=== PATIENT | female | born 1995 | race Caucasian/White ===

== ENCOUNTER 2018-12-05 15:50 | Observation (INO) ==
[2018-12-05] MEDS ORDERED: Acetaminophen 325 MG TABLET PO PRN (19:44)
[2018-12-05] MEDS ORDERED: 0.9 % Sodium Chloride 1,000 ML IVC SCH (19:45)
[2018-12-05] MEDS ORDERED: traMADol 50 MG TABLET PO PRN (19:46)
[2018-12-05] MEDS ORDERED: Ondansetron ODT 4 MG TAB.RAPDIS SL PRN (19:49)
--- NOTE | 2018-12-05 20:12 | Acute Care Surgery H&P ---
Date of Encounter: 12/05/18 Time of Encounter: 20:06 Assessment and Plan (1) Symptomatic cholelithiasis Current Visit: Yes Status: Acute 23F 15 weeks with what sounds like expected afternoon sickness related to . No pain on exam; CLD, ADAT IVF labs, UA to eval for possible UTI activity as tolerated will plan for d/c in AM The assessment and plan as outlined above was discussed with the patient and/or family members who expressed understanding and agreement. All questions were answered. History of Present Illness Chief complaint: abdominal pain HPI: Ms. Siddiqi is a 23 year old female who is 15 weeks who presented to an [facility] with nausea, vomiting, and PO intolerance. She attributed her symptoms to morning sickness. She had a prior episode before where she was found to have a UTI. She was evaluated at an [facility] where, during their work up, she was found to have cholelithiasis. This was an incidental finding as she never complained of any abdominal pain and never knew she had gallstones until today. I was called for management recommendations in light of the finding and the patient presentation. The concern by the [facility] was for acute cholecystitsi as they reported tenderness on exam during the abdominal US. The decision was made for the patient to be evaluated here at [place]. The patient feels better, still reports no pain, and is about to have broth. When asking about her pain, she stated that the US rod tape operator pushed on her ribs and it hurt. She reiterated that she did not have abdominal pain. Past Med Surg Social Fam HX - Past Medical History Additional medical history: Fatty liver, Asthma, ovarian cyst, X 2/ 1st one miscarriage at 23 weeks Psychiatric history: anxiety, ADHD, depression - Social History Smoking Status: Current every day smoker Packs per day: 0.25 Smokeless Tobacco Status: No Alcohol use: none Drug use: none Medications and Allergies Allergy/AdvReac Type Severity Reaction Status Date / Time iodine Allergy See Verified 12/05/18 19:03 Comments acetaminophen [From Vicodin] AdvReac Swelling Verified 12/05/18 19:03 of the Eye Amoxicillin AdvReac Swelling Verified 12/05/18 19:03 of the Eye hydrocodone [From Vicodin] AdvReac Swelling Verified 12/05/18 19:03 of the Eye Penicillins AdvReac Hives Verified 12/05/18 19:03 Review of Systems All systems PM: 12 point ROS negative besides HPI findings General Surgery Exam Initial Vital Signs Temp Pulse Resp BP Pulse Ox 98.5 F 77 16 90/63 100 12/05/18 18:27 12/05/18 18:27 12/05/18 18:27 12/05/18 18:27 12/05/18 18:27 - General physical appearance no distress - Eyes other (no scleral icterus), PERRL, normal ocular movement - ENT normocephalic - Neck trachea midline, no lymphadectomy - Respiratory normal expansion, normal respiratory effort - Cardiovascular Cardiovascular exam: Present: RRR - Abdomen Abdomen general surgery: Present: soft, non tender - Integumentary Integumentary general surgery: Present: warm and dry - Neurologic Present: CN 2-12 grossly intact - Musculoskeletal Present: normal posture - Psychiatric Psychiatric general surgery: Present: A&Ox3 Results - Labs All other labs normal.
[2018-12-05 21:53] LABS: Basophils % 0.2 %; Eosinophils # 0.1 K/mcL (0.0-0.6); Eosinophils % 0.7 %; Hematocrit 32.6 % (35.3-44.9); Hemoglobin 11.1 g/dL (11.5-15.4); Immature Granulocytes % 0.6 % (0-4); Lymphocytes # 1.8 K/mcL (0.6-4.6); Lymphocytes % 20.7 %; Mean Corpuscular Hemoglobin 28.5 pg (28.0-33.3); Mean Corpuscular Volume 83.6 fL (83.0-100.0); Mean Platelet Volume 9.7 fL (9.4-12.4); Monocytes # 0.5 K/mcL (0.0-1.3); Monocytes % 5.6 %; Neutrophils # 6.4 K/mcL (1.6-8.9); Platelet Count 186 K/mcL (140-400); Red Cell Distribution Width 14.5 % (11.5-14.5); Segmented Neutrophils % 72.2 %; White Blood Count 8.9 K/mcL (4.3-11.1)
[2018-12-05 22:13] LABS: Alanine Aminotransferase 6 Units/L (7-52); Albumin 3.4 g/dL (3.5-5.7); Albumin/Globulin Ratio 1.3 (1.1-2.2); Alkaline Phosphatase 52 Units/L (34-104); Aspartate Amino Transferase 9 Units/L (13-39); BUN/Creatinine Ratio 13 (6-26); Bilirubin,Total 0.4 mg/dL (0.3-1.0); Blood Urea Nitrogen 5 mg/dL (6-20); Calcium 8.1 mg/dL (8.6-10.3); Carbon Dioxide 19 mEq/L (23-29); Chloride 108 mEq/L (98-107); Globulin 2.6 g/dL (2.4-3.5); Glucose 72 mg/dL (70-105); Osmolality,Calculated 276 (280-300); Potassium 3.2 mEq/L (3.5-5.1); Sodium 135 mEq/L (136-145); eGFR For African Americans > 60 (> 60); eGFR For Non-African Americans > 60 (> 60)
[2018-12-05 22:34] LABS: Bilirubin,Urine Negative (Negative); Blood,Urine Negative (Negative); Clarity,Urine Cloudy (Clear); Color,Urine Yellow (Yellow); Glucose,Urine (UA) Normal (Normal); Ketones,Urine 80 mg/dL (Negative); Leukocyte Esterase,Urine Moderate (Negative); Nitrite,Urine Negative (Negative); PH,Urine 6.5 pH Units (5.0-8.0); Protein,Urine Negative (Neg-Trace); Specific Gravity,Urine 1.022 (1.010-1.025); Urobilinogen,Urine Normal (Normal)
[2018-12-05 22:37] LABS: Bacteria,Urine Moderate per hpf (None-Few); Hyaline Casts,Urine None Seen per lpf (None-Few); Squamous Epithelial Cell,Urine Many per lpf (None-Few); WBC,Urine 15-30 per hpf (0-3)
--- NOTE | 2018-12-06 07:50 | Discharge Summary ---
<Lola Knapp - Last Filed: 12/06/18 09:09> Orders not resulted at time of discharge: Pending orders 12/05/18 21:15 Culture,Urine [RM] Stat Date of Encounter: 12/06/18 Time of Encounter: 07:48 - Discharge Diagnosis (1) Symptomatic cholelithiasis Priority: Primary Status: Chronic General Surgery Exam Initial Vital Signs Temp Pulse Resp BP Pulse Ox 98.5 F 77 16 90/63 100 12/05/18 18:27 12/05/18 18:27 12/05/18 18:27 12/05/18 18:27 12/05/18 18:27 - General physical appearance well nourished, no distress, no pain - ENT atraumatic, normocephalic - Neck trachea midline - Respiratory normal expansion, normal respiratory effort, clear to auscultation - Cardiovascular Cardiovascular exam: Present: RRR - Abdomen Abdomen general surgery: Present: bowel sounds present, soft, non tender - Integumentary Integumentary general surgery: Present: warm and dry - Neurologic Present: normal coordination, normal sensation - Musculoskeletal Present: normal gait, normal posture - Psychiatric Psychiatric general surgery: Present: appropriate, oriented to person, oriented to place, oriented to time, speech is normal, memory intact - Hospital Course Hospital course: Ms. Siddiqi is a 23 year old female who was admitted on 12/05/2018 with nausea and vomiting. She is 15 weeks gestation. She reports typical morning sickness and now sometimes afternoon sickness. She denies abdominal pain. She reports her symptoms have completely resolved, she is hungry, and would like to be discharged. She is reminded that she does have cholelithiasis and should follow-up as an outpatient with Dr. Ball approximately 4 weeks . We will begin discharge planning to home with a follow-up as directed. - Time Spent with Patient Total time spent providing and/or coordinating discharge services: - Discharge Medications Prescriptions: Continued Pnv No.95/Ferrous Fum/Folic AC [ Caplet] 1 tab PO DAILY Home Medications: Pnv No.95/Ferrous Fum/Folic AC [ Caplet] 1 tab PO DAILY 12/05/18 [History] Allergies/Adverse Reactions: Allergy/AdvReac Type Severity Reaction Status Date / Time iodine Allergy See Verified 12/05/18 19:03 Comments Amoxicillin AdvReac Swelling Verified 12/05/18 21:04 of the Eye hydrocodone [From Vicodin] AdvReac Swelling Verified 12/05/18 21:04 of the Eye Penicillins AdvReac Hives Verified 12/05/18 21:04 Date of admission: 12/05/18 18:10 Primary care physician: PCP NONE Discharging clinician: Casey Rodriguez (Saima Knapp APRN) Anticipated date of discharge: 12/06/18 Labs on day of discharge: Labs from last 24 hours 12/05/18 12/05/18 12/05/18 21:17 21:17 21:15 WBC 8.9 RBC 3.90 Hgb 11.1 L Hct 32.6 L MCV 83.6 MCH 28.5 MCHC 34.0 RDW 14.5 Plt Count 186 MPV 9.7 Immature Gran % 0.6 Seg Neutrophils % 72.2 Lymphocytes % 20.7 Monocytes % 5.6 Eosinophils % 0.7 Basophils % 0.2 Neutrophils # 6.4 Lymphocytes # 1.8 Monocytes # 0.5 Eosinophils # 0.1 Basophils # 0.0 Sodium 135 L Potassium 3.2 L Chloride 108 H Carbon Dioxide 19 L BUN 5 L Creatinine 0.39 L Est GFR ( Amer) > 60 Est GFR (Non-Af Amer) > 60 BUN/Creatinine Ratio 13 Glucose 72 Calculated Osmolality 276 L Calcium 8.1 L Total Bilirubin 0.4 AST 9 L ALT 6 L Alkaline Phosphatase 52 Serum Total Protein 6.0 L Albumin 3.4 L Globulin 2.6 Albumin/Globulin Ratio 1.3 Urine Color Yellow Urine Clarity Cloudy A Urine pH 6.5 Ur Specific [place] 1.022 Urine Protein Negative Urine Glucose (UA) Normal Urine Ketones 80 H Urine Blood Negative Urine Nitrite Negative Urine Bilirubin Negative Urine Urobilinogen Normal Ur Leukocyte Esterase Moderate H Urine Microscopic RBC 3-5 H Urine Microscopic WBC 15-30 H Ur Squamous Epith Cells Many H Urine Bacteria Moderate H Hyaline Casts None Seen Ur Culture Indicated? YES A Preliminary micro results at discharge 12/05/18 21:15 Urine Culture - Preliminary Urine,Clean Catch Culture is incubating. - Patient Status Disposition: Home, Self-Care Condition: Good Functional capacity at discharge: independent ambulation Overall status at discharge: patient is back to baseline - Discharge Instructions Instructions: Gallstones (DC), Low Fat Diet (GEN) Follow Up With: NONE,PCP [Primary Care Provider] - Tristan Ball MD [Non-Partnered Physician] - (2-4 weeks ) Additional Instructions: Follow a low fat diet. Follow-up with Dr. ball after you deliver. Call the office to make an appointment for aprox 2-4 weeks . Follow-up with your NAPHTHALENE OPERATOR as directed. - Diet and Activity Activity: increase activity as tolerated Diet: low fat, low cholesterol <Casey Monet F - Last Filed: 12/06/18 09:44> Orders not resulted at time of discharge: Pending orders 12/05/18 21:15 Culture,Urine [RM] Stat Date of Encounter: 12/06/18 General Surgery Exam Initial Vital Signs Temp Pulse Resp BP Pulse Ox 98.5 F 77 16 90/63 100 12/05/18 18:27 12/05/18 18:27 12/05/18 18:27 12/05/18 18:27 12/05/18 18:27 - Hospital Course Hospital course: Ms. Siddiqi is a 23 year old female - Time Spent with Patient Total time spent providing and/or coordinating discharge services: Date of admission: 12/05/18 18:10 Primary care physician: PCP NONE Labs on day of discharge: Labs from last 24 hours 12/05/18 12/05/18 12/05/18 21:17 21:17 21:15 WBC 8.9 RBC 3.90 Hgb 11.1 L Hct 32.6 L MCV 83.6 MCH 28.5 MCHC 34.0 RDW 14.5 Plt Count 186 MPV 9.7 Immature Gran % 0.6 Seg Neutrophils % 72.2 Lymphocytes % 20.7 Monocytes % 5.6 Eosinophils % 0.7 Basophils % 0.2 Neutrophils # 6.4 Lymphocytes # 1.8 Monocytes # 0.5 Eosinophils # 0.1 Basophils # 0.0 Sodium 135 L Potassium 3.2 L Chloride 108 H Carbon Dioxide 19 L BUN 5 L Creatinine 0.39 L Est GFR ( Amer) > 60 Est GFR (Non-Af Amer) > 60 BUN/Creatinine Ratio 13 Glucose 72 Calculated Osmolality 276 L Calcium 8.1 L Total Bilirubin 0.4 AST 9 L ALT 6 L Alkaline Phosphatase 52 Serum Total Protein 6.0 L Albumin 3.4 L Globulin 2.6 Albumin/Globulin Ratio 1.3 Urine Color Yellow Urine Clarity Cloudy A Urine pH 6.5 Ur Specific [place] 1.022 Urine Protein Negative Urine Glucose (UA) Normal Urine Ketones 80 H Urine Blood Negative Urine Nitrite Negative Urine Bilirubin Negative Urine Urobilinogen Normal Ur Leukocyte Esterase Moderate H Urine Microscopic RBC 3-5 H Urine Microscopic WBC 15-30 H Ur Squamous Epith Cells Many H Urine Bacteria Moderate H Hyaline Casts None Seen Ur Culture Indicated? YES A Preliminary micro results at discharge 12/05/18 21:15 Urine Culture - Preliminary Urine,Clean Catch Culture is incubating. - Attending Attestation I examined this patient and my medical decision-making was reviewed with the SUPERVISOR DECORATING. I agree with the documented findings, disposition and treatment plan as described to the extent set forth below. 23 y/o female in 2nd trimester IUP. Pt is diagnosed with gallstones after work- up for n/v. However, pt denies abdominal pain. Recommend DC to home. Manage symptoms of n/v medically. Recommend f/u after delivery for evaluation for elective, outpatient Lap bella. Pt understands and agrees with treatment plan.
[2018-12-06] MEDS ORDERED: Pantoprazole 40 MG VIAL IVP SCH (09:00)
[2018-12-06] MEDS ORDERED: Prenatal Vit/FA 1 EACH TABLET PO SCH (09:00)
[2018-12-06 09:55] VITALS: BP 93/61
== END 2018-12-06 12:21 | disposition home or self-care (01) ==
LOC: 3ANU
PROVIDERS: ADMIT Surgery; ATTEND Surgery

== ENCOUNTER → 2019-03-05 00:50 | Observation (INO) ==
[2019-03-04 22:10] LABS: Bilirubin,Urine Negative (Negative); Blood,Urine Negative (Negative); Clarity,Urine Clear (Clear); Color,Urine Yellow (Yellow); Glucose,Urine (UA) Normal (Normal); Ketones,Urine Negative (Negative); Leukocyte Esterase,Urine Negative (Negative); Nitrite,Urine Negative (Negative); Protein,Urine Negative (Neg-Trace); Specific Gravity,Urine 1.005 (1.010-1.025); Urobilinogen,Urine Normal (Normal)
[2019-03-04 22:16] LABS: Amphetamine Screen,Urine Negative ng/mL (Cutoff=1000); Barbiturate Screen,Urine Negative ng/mL (Cutoff=200); Benzodiazepines Screen,Urine Negative ng/mL (Cutoff=200); Cannabinoid Screen,Urine Negative ng/mL (Cutoff = 50); Cocaine Screen,Urine Negative ng/mL (Cutoff= 300); Opiate Screen,Urine Negative ng/mL (Cutoff=300); Phencyclidine Screen,Urine Negative ng/mL (Cutoff=25)
== END | disposition home or self-care (01) ==
LOC: 1NENULAB
PROVIDERS: ADMIT Registered Nurse; ATTEND Registered Nurse

== ENCOUNTER → 2019-04-19 02:55 | Observation (INO) ==
[2019-04-19 00:22] LABS: Bilirubin,Urine Negative (Negative); Blood,Urine Negative (Negative); Clarity,Urine Cloudy (Clear); Color,Urine Yellow (Yellow); Glucose,Urine (UA) 100 mg/dL (Normal); Ketones,Urine Trace mg/dL (Negative); Leukocyte Esterase,Urine Trace (Negative); Nitrite,Urine Negative (Negative); PH,Urine 6.5 pH Units (5.0-8.0); Protein,Urine Trace mg/dL (Neg-Trace); Specific Gravity,Urine 1.024 (1.010-1.025); Urobilinogen,Urine Normal (Normal)
[2019-04-19 00:25] LABS: Amphetamine Screen,Urine Negative ng/mL (Cutoff=1000); Bacteria,Urine None Seen per hpf (None-Few); Barbiturate Screen,Urine Negative ng/mL (Cutoff=200); Benzodiazepines Screen,Urine Negative ng/mL (Cutoff=200); Cannabinoid Screen,Urine Negative ng/mL (Cutoff = 50); Cocaine Screen,Urine Negative ng/mL (Cutoff= 300); Hyaline Casts,Urine None Seen per lpf (None-Few); Opiate Screen,Urine Negative ng/mL (Cutoff=300); Phencyclidine Screen,Urine Negative ng/mL (Cutoff=25); RBC,Urine 0-3 per hpf (0-3); Squamous Epithelial Cell,Urine Many per lpf (None-Few)
[~2019-04-19 02:55] MED LIST: Ringers Solution, Lactated 1,000 ML ONE
== END | disposition home or self-care (01) ==
LOC: 1NENULAB
PROVIDERS: ADMIT Advanced Practice Midwife; ATTEND Advanced Practice Midwife

== ENCOUNTER 2019-04-28 11:41 | Observation (INO) ==
[2019-04-28 13:51] LABS: Candida DNA Not Detected (Not Detect); Gardnerella DNA Not Detected (Not Detect); Trichomonas DNA Not Detected (Not Detect)
== END 2019-04-28 13:00 | disposition home or self-care (01) ==
LOC: 1NENULAB
PROVIDERS: ADMIT Advanced Practice Midwife; ATTEND Advanced Practice Midwife

== ENCOUNTER → 2019-05-12 22:41 | Observation (INO) ==
[2019-05-12 22:05] LABS: Bilirubin,Urine Negative (Negative); Blood,Urine Negative (Negative); Clarity,Urine Cloudy (Clear); Color,Urine Yellow (Yellow); Glucose,Urine (UA) >=1000 mg/dL (Normal); Ketones,Urine Trace mg/dL (Negative); Leukocyte Esterase,Urine Negative (Negative); Nitrite,Urine Negative (Negative); Protein,Urine Negative (Neg-Trace); Specific Gravity,Urine > 1.030 (1.010-1.025); Urobilinogen,Urine Normal (Normal)
[2019-05-12 22:06] LABS: Bacteria,Urine None Seen per hpf (None-Few); Hyaline Casts,Urine None Seen per lpf (None-Few); RBC,Urine 0-3 per hpf (0-3); Squamous Epithelial Cell,Urine Many per lpf (None-Few); WBC,Urine 0-3 per hpf (0-3)
== END | disposition home or self-care (01) ==
LOC: 1NENULAB
PROVIDERS: ADMIT Advanced Practice Midwife; ATTEND Advanced Practice Midwife

== ENCOUNTER 2019-05-16 22:20 | Observation (INO) | END 2019-05-17 00:52 | disposition home or self-care (01) | LOC: 1NENULAB | PROVIDERS: ADMIT Advanced Practice Midwife; ATTEND Advanced Practice Midwife ==

== ENCOUNTER 2019-05-20 07:43 | Inpatient (IN) ==
[2019-05-20] MEDS ORDERED: Naloxone 0.4 MG/ML INJ IVP PRN (07:54)
[2019-05-20] MEDS ORDERED: Ondansetron 4 MG/2 ML VIAL IVP PRN (07:54)
[2019-05-20] MEDS ORDERED: Azithromycin 500 MG in 0.9 % Sodium Chloride 250 ML IVPB ONE (07:54)
[2019-05-20] MEDS ORDERED: Famotidine 20 MG/2 ML VIAL IVP PRN (07:54)
[2019-05-20] MEDS ORDERED: Metoclopramide 10 MG/2 ML VIAL IVP PRN (07:54)
[2019-05-20 08:27] LABS: Basophils % 0.3 %; Eosinophils # 0.1 K/mcL (0.0-0.6); Eosinophils % 0.5 %; Hematocrit 33.6 % (35.3-44.9); Hemoglobin 11.4 g/dL (11.5-15.4); Immature Granulocytes % 0.6 % (0-4); Lymphocytes # 2.1 K/mcL (0.6-4.6); Lymphocytes % 18.4 %; Mean Corpuscular HGB Conc 33.9 g/dL (31.6-35.5); Mean Corpuscular Hemoglobin 26.9 pg (28.0-33.3); Mean Corpuscular Volume 79.2 fL (83.0-100.0); Mean Platelet Volume 9.5 fL (9.4-12.4); Monocytes # 0.9 K/mcL (0.0-1.3); Monocytes % 7.8 %; Neutrophils # 8.3 K/mcL (1.6-8.9); Platelet Count 187 K/mcL (140-400); Red Blood Count 4.24 M/mcL (3.82-4.97); Red Cell Distribution Width 15.1 % (11.5-14.5); Segmented Neutrophils % 72.4 %; White Blood Count 11.5 K/mcL (4.3-11.1)
[2019-05-20 08:35] LABS: Amphetamine Screen,Urine Negative ng/mL (Cutoff=1000); Barbiturate Screen,Urine Negative ng/mL (Cutoff=200); Benzodiazepines Screen,Urine Negative ng/mL (Cutoff=200); Cannabinoid Screen,Urine Negative ng/mL (Cutoff = 50); Cocaine Screen,Urine Negative ng/mL (Cutoff= 300); Opiate Screen,Urine Negative ng/mL (Cutoff=300); Phencyclidine Screen,Urine Negative ng/mL (Cutoff=25)
[2019-05-20] MEDS ORDERED: miSOPROStoL 25 MCG TABLET PO PRN (09:27)
[2019-05-20] MEDS ORDERED: Ringers Solution, Lactated 1,000 ML ONE ×3 (09:45→23:12)
[2019-05-20] MEDS ORDERED: Vancomycin (wt based) 1,000 MG VIAL IVPB SCH ×2 (10:00→16:00)
[2019-05-20] MEDS ORDERED: Aminoglycoside Consult 1 EACH MC ONE (10:03)
[2019-05-20] MEDS ORDERED: Ringers Solution, Lactated 500 ML IVC SCH (10:15)
[2019-05-20] MEDS ORDERED: Famotidine 20 MG/2 ML VIAL IVP ONE (11:40)
[2019-05-20] MEDS ORDERED: *HR* FentaNYL (PF) 100 MCG/2 ML VIAL ONE ×2 (13:54→23:35)
[2019-05-20] MEDS ORDERED: *HR* FentaNYL (PF) 100 MCG/2 ML VIAL IVP ONE (13:58)
[2019-05-20] MEDS ORDERED: Bupivacaine-MPF 0.25% 10 ML VIAL EP ONE (14:04)
[2019-05-20] MEDS ORDERED: *HR* FentaNYL (PF) 100 MCG/2 ML VIAL EP ONE (14:04)
[2019-05-20] MEDS ORDERED: EPHEDrine 50 MG/ML VIAL IVP PRN (14:04)
[2019-05-20] MEDS ORDERED: Epidural Premix (fent/bupiv) 110 ML EP ONE (14:09)
[2019-05-20] MEDS ORDERED: Epidural Premix (fent/bupiv) 110 ML EP SCH (14:15)
[2019-05-20] MEDS ORDERED: Oxytocin 20 units/ LR 1000 mL 20 UNIT/1,000 ML BAG IVC ONE (17:19)
[2019-05-20] MEDS ORDERED: Oxytocin 20 units/ LR 1000 mL 20 UNIT/1,000 ML BAG IVC SCH (17:30)
[2019-05-21] MEDS ORDERED: Lanolin 7 G OINT...G. TP PRN (04:00)
[2019-05-21] MEDS ORDERED: Oxytocin 20 units/ LR 1000 mL 20 UNIT/1,000 ML BAG IVC SCH (04:00)
[2019-05-21] MEDS ORDERED: *HR* HYDROcodone/Acet 5/325 mg TABLET PO PRN (04:00)
[2019-05-21] MEDS ORDERED: Benzocaine/Menthol 56 GM AEROSOL SPRAY TP PRN (04:00)
[2019-05-21] MEDS: Acetaminophen 325 MG TABLET PO PRN ×3 (04:15→20:04)
[2019-05-21 06:34] LABS: Basophils % 0.1 %; Eosinophils % 0.3 %; Hematocrit 29.5 % (35.3-44.9); Immature Granulocytes % 0.4 % (0-4); Lymphocytes % 7.2 %; Mean Corpuscular HGB Conc 32.2 g/dL (31.6-35.5); Mean Corpuscular Hemoglobin 26.5 pg (28.0-33.3); Mean Corpuscular Volume 82.4 fL (83.0-100.0); Mean Platelet Volume 9.9 fL (9.4-12.4); Monocytes % 6.8 %; Neutrophils # 12.2 K/mcL (1.6-8.9); Platelet Count 133 K/mcL (140-400); Red Blood Count 3.58 M/mcL (3.82-4.97); Red Cell Distribution Width 15.1 % (11.5-14.5); Segmented Neutrophils % 85.2 %; White Blood Count 14.4 K/mcL (4.3-11.1)
[2019-05-21 06:35] LABS: Hemoglobin 9.5 g/dL (11.5-15.4)
[2019-05-21] MEDS: Prenatal Vit/FA 1 EACH TABLET PO SCH (08:01)
[2019-05-21] MEDS: Ibuprofen 600 MG TABLET PO PRN ×3 (08:01→22:44)
[2019-05-22] MEDS: Ibuprofen 600 MG TABLET PO PRN (04:23)
[2019-05-22] MEDS: Prenatal Vit/FA 1 EACH TABLET PO SCH (08:39)
[2019-05-22] MEDS: Acetaminophen 325 MG TABLET PO PRN (08:39)
[2019-05-22] MEDS ORDERED: Lidocaine -MPF 1% 5 ML AMPUL INFILT ONE (08:56)
[2019-05-22] MEDS ORDERED: Etonogestrel 68 MG IMPLANT IL ONE (08:56)
[2019-05-22 09:14] VITALS: BP 110/70
== END 2019-05-22 12:01 | disposition home or self-care (01) | DRG 542 ==
LOC: 1NENULAB 07:43 → 1NENUOBS 05-21 05:36
PROVIDERS: ADMIT Advanced Practice Midwife; ATTEND Advanced Practice Midwife

== ENCOUNTER 2021-03-06 17:09 | Observation (INO) | END 2021-03-06 18:37 | disposition home or self-care (01) | LOC: 1NENULAB | PROVIDERS: ADMIT Advanced Practice Midwife; ATTEND Advanced Practice Midwife ==

== ENCOUNTER 2021-03-07 03:53 | Inpatient (IN) ==
[2021-03-07] MEDS ORDERED: Ondansetron 4 MG/2 ML VIAL IVP PRN (04:49)
[2021-03-07] MEDS ORDERED: Famotidine 20 MG/2 ML VIAL IVP PRN (04:49)
[2021-03-07] MEDS ORDERED: miSOPROStoL 25 MCG TABLET VG PRN (04:49)
[2021-03-07] MEDS ORDERED: Naloxone 0.4 MG/ML INJ IVP PRN (04:49)
[2021-03-07] MEDS ORDERED: Metoclopramide 10 MG/2 ML VIAL IVP PRN (04:49)
[2021-03-07] MEDS ORDERED: Ringers Solution, Lactated 1,000 ML ONE (04:50)
[2021-03-07] MEDS ORDERED: Oxytocin 20 units/ LR 1000 mL 20 UNIT/1,000 ML BAG IVC SCH (05:00)
[2021-03-07] MEDS: Ringers Solution, Lactated 1,000 ML IVC SCH ×2 (05:06→15:00)
[2021-03-07 05:59] LABS: Basophils % 0.2 %; Eosinophils # 0.1 K/mcL (0.0-0.6); Eosinophils % 0.7 %; Hematocrit 33.2 % (35.3-44.9); Hemoglobin 11.1 g/dL (11.5-15.4); Immature Granulocytes % 0.5 % (0-4); Lymphocytes # 2.4 K/mcL (0.6-4.6); Lymphocytes % 23.1 %; Mean Corpuscular HGB Conc 33.4 g/dL (31.6-35.5); Mean Corpuscular Hemoglobin 28.3 pg (28.0-33.3); Mean Corpuscular Volume 84.7 fL (83.0-100.0); Mean Platelet Volume 9.8 fL (9.4-12.4); Monocytes # 0.9 K/mcL (0.0-1.3); Neutrophils # 6.8 K/mcL (1.6-8.9); Platelet Count 191 K/mcL (140-400); Red Blood Count 3.92 M/mcL (3.82-4.97); Red Cell Distribution Width 15.3 % (11.5-14.5); Segmented Neutrophils % 66.5 %; White Blood Count 10.2 K/mcL (4.3-11.1)
[2021-03-07 06:00] LABS: Amphetamine Screen,Urine Negative ng/mL (Cutoff=1000); Barbiturate Screen,Urine Negative ng/mL (Cutoff=200); Benzodiazepines Screen,Urine Negative ng/mL (Cutoff=200); Cannabinoid Screen,Urine Negative ng/mL (Cutoff = 50); Cocaine Screen,Urine Negative ng/mL (Cutoff= 300); Opiate Screen,Urine Negative ng/mL (Cutoff=300); Phencyclidine Screen,Urine Negative ng/mL (Cutoff=25); Protein/Creatinine Ratio,Urine 0.29 mg/mg (0.00-0.20)
[2021-03-07 07:13] LABS: Alanine Aminotransferase 4 Units/L (7-52); Aspartate Amino Transferase 8 Units/L (13-39); BUN/Creatinine Ratio 14 (6-26); Blood Urea Nitrogen 6 mg/dL (6-20); Glucose 82 mg/dL (70-105); Lactate Dehydrogenase 123 Units/L (140-271); Uric Acid 3.5 mg/dL (2.3-7.6); eGFR For African Americans > 60 (> 60); eGFR For Non-African Americans > 60 (> 60)
[2021-03-07 07:41] LABS: Influenza A PCR Negative (Negative); Influenza B PCR Negative (Negative); Resp. Syncytial Virus PCR Negative (Negative)
[2021-03-07 07:44] LABS: SARS-CoV-2 by PCR (In House) Negative (Negative)
[2021-03-07] MEDS ORDERED: Epidural Premix (fent/bupiv) 110 ML EP ONE (13:07)
[2021-03-07] MEDS ORDERED: Ropivacaine/PF 0.2% 20 ML VIAL ONE (13:08)
[2021-03-07] MEDS ORDERED: *HR* FentaNYL (PF) 100 MCG/2 ML VIAL ONE (13:08)
[2021-03-07] MEDS: Epidural Premix (fent/bupiv) 110 ML EP SCH ×2 (13:30→20:46)
[2021-03-07] MEDS ORDERED: EPHEDrine 50 MG/ML VIAL IVP PRN (13:44)
[2021-03-07] MEDS ORDERED: D5% in Lactated Ringers 1,000 ML IVC SCH (18:15)
[2021-03-07] MEDS ORDERED: Acetaminophen/Butalbital/CaffeineTABLET PO ONE (20:08)
[2021-03-08] MEDS ORDERED: Measles/Mumps/Rubella Vacc 0.5 ML VIAL SQ PRN (01:18)
[2021-03-08] MEDS ORDERED: Oxytocin 20 units/ LR 1000 mL 20 UNIT/1,000 ML BAG IVC SCH (01:18)
[2021-03-08] MEDS ORDERED: Lanolin 7 G OINT...G. TP PRN (01:18)
[2021-03-08] MEDS ORDERED: Rho Immune Globulin 1,500 UNIT SYRINGE IM PRN (01:18)
[2021-03-08] MEDS ORDERED: Ondansetron ODT 4 MG TAB.RAPDIS SL PRN (01:18)
[2021-03-08] MEDS ORDERED: Benzocaine/Menthol 56 GM AEROSOL SPRAY TP PRN (01:18)
[2021-03-08] MEDS: Acetaminophen 325 MG TABLET PO SCH ×4 (01:39→18:07)
[2021-03-08] MEDS: Ibuprofen 600 MG TABLET PO SCH ×4 (03:05→20:21)
[2021-03-08] MEDS: Prenatal Vit/FA 1 EACH TABLET PO SCH (08:46)
[2021-03-08] MEDS ORDERED: Lidocaine/EPI 1:100k 1% 20 ML VIAL INFILT ONE (16:43)
[2021-03-08] MEDS ORDERED: Etonogestrel 68 MG IMPLANT IL ONE (16:43)
[2021-03-09] MEDS: Prenatal Vit/FA 1 EACH TABLET PO SCH (07:21)
[2021-03-09] MEDS: Ibuprofen 600 MG TABLET PO SCH (07:22)
[2021-03-09 07:34] VITALS: BP 108/74; PULSE 81; TEMP 97.8; O2SAT 98
[2021-03-09] MEDS: Acetaminophen 325 MG TABLET PO SCH (09:23)
== END 2021-03-09 10:58 | disposition home or self-care (01) | DRG 560 ==
LOC: 1NENULAB 03:53 → 1NENUOBS 03-08 02:23
PROVIDERS: ADMIT Obstetrics & Gynecology; ATTEND Obstetrics & Gynecology